=== PATIENT | male | born 1985 | race Caucasian/White ===

== ENCOUNTER 2024-10-24 21:58 | Emergency (ER) | payer OTHER ==
[~2024-10-24] VITALS: Ht 175.3 cm; Wt 90.7 kg
[2024-10-24 22:10] VITALS: PULSE 92; RESP 18; TEMP 98.3
[2024-10-24] MEDS ORDERED: AMOX TR-K CLV1 EAC2 PO (22:22)
[2024-10-24 22:35] VITALS: BP 142/100; O2SAT 98
== END 2024-10-24 22:30 | disposition home or self-care (01) ==
LOC: ER 22:15
DX: K08.89 Other specified disorders of teeth and supporting structures (principal); F17.210 Nicotine dependence, cigarettes, uncomplicated
CPT/HCPCS: 99283